=== PATIENT | female | born 1955 | race Caucasian/White ===

== ENCOUNTER 2018-02-21 06:01 | Day surgery (SDC) | payer OTHER ==
[2018-02-21] MEDS ORDERED: hydrALAzine 20 MG INJ (10:38)
[2018-02-21] MEDS ORDERED: FENTAnyl 50 MCG/ML VIAL ×2 (11:14→11:15)
[2018-02-21] MEDS ORDERED: MIDAZOLAM 1 MG/ML 2 ML INJ ×2 (11:15)
== END 2018-02-21 13:56 | disposition home or self-care (01) ==
LOC: GIL 06:01
DX: Z12.11 Encounter for screening for malignant neoplasm of colon (principal); K29.50 Unspecified chronic gastritis without bleeding; B96.89 Other specified bacterial agents as the cause of diseases classified elsewhere; K21.9 Gastro-esophageal reflux disease without esophagitis; K57.30 Diverticulosis of large intestine without perforation or abscess without bleeding; K64.8 Other hemorrhoids; I10 Essential (primary) hypertension
CPT/HCPCS: 43239; 88305; 88312